=== PATIENT | male | born 1995 | race Caucasian/White ===

== ENCOUNTER 2018-06-18 19:35 | Emergency (ER) | payer SELFPAY ==
[~2018-06-18] VITALS: Ht 177.8 cm; Wt 89.0 kg
[2018-06-18 19:42] VITALS: BP 126/72
== END 2018-06-18 23:00 | disposition left against medical advice (07) ==
LOC: ER 19:35
DX: Z53.21 Procedure and treatment not carried out due to patient leaving prior to being seen by health care provider (principal)